=== PATIENT | male | born 1950 | race Caucasian/White ===

== ENCOUNTER 2018-08-10 08:25 | Outpatient (CLI) | payer BC, OTHER ==
[~2018-08-10 08:25] MED LIST: ASPI-496 PO; EXEN2PEN SC; INSU100I28 SC; LISI-167 PO; METF500T17 PO; PRAV80TA2 PO; SITA1TAB5 PO
[2018-08-10 09:36] LABS: MICROSCOPIC NOT IND
[2018-08-10 09:37] LABS: CULTURE INDICATED? NO
[2018-08-10 09:41] LABS: BASOPHILS # (AUTO) 0.03 x10^3/uL (0-0.1); BASOPHILS % (AUTO) 0 % (0-1); EOSINOPHILS # (AUTO) 0.36 x10^3/uL (0-0.4); EOSINOPHILS % (AUTO) 5 % (1-7); LYMPHOCYTES # (AUTO) 2.07 x10^3/uL (1-3.4); LYMPHOCYTES % (AUTO) 27 % (22-44); MD NO; MEAN CORPUSCULAR HEMOGLOBIN 31.2 pg (27.5-34.5); MEAN CORPUSCULAR HGB CONC 33.5 g/dL (33.2-36.2); MEAN CORPUSCULAR VOLUME 93.1 fL (81-97); MEAN PLATELET VOLUME 8.2 fL (7.4-10.4); MONOCYTES # (AUTO) 0.58 x10^3/uL (0.2-0.8); MONOCYTES % (AUTO) 8 % (2-9); NEUTROPHILS # (AUTO) 4.52 x10^3/uL (1.8-6.8); NEUTROPHILS % (AUTO) 60 % (42-75); PLATELET COUNT 244 x10^3/uL (130-400); RED BLOOD COUNT 4.73 x10^6/uL (4.38-5.82)
[2018-08-10] MEDS ORDERED: INSU3INS SQ (09:49)
[2018-08-10] MEDS ORDERED: LISI-170 PO (09:49)
[2018-08-10] MEDS ORDERED: METF500T17 PO (09:49)
[2018-08-10 11:02] LABS: ALANINE AMINOTRANSFERASE 24 U/L (12-78); ALBUMIN 4.1 g/dL (3.4-5.0); ANION GAP 6 mmol/L (5-15); CALCIUM 8.9 mg/dL (8.5-10.1); CHLORIDE 106 mmol/L (98-107)
[2018-08-10 11:04] LABS: ALKALINE PHOSPHATASE 69 U/L (45-117); BILIRUBIN,TOTAL 1.1 mg/dL (0.2-1.0); CREATININE 1.35 mg/dL (0.7-1.3); TOTAL PROTEIN 7.4 g/dL (6.4-8.2)
== END 2018-08-10 23:59 | disposition home or self-care (01) ==
LOC: STAR 08:25
PROVIDERS: ATTEND Orthopaedic Surgery
DX: Z01.818 Encounter for other preprocedural examination (principal); M16.12 Unilateral primary osteoarthritis, left hip
CPT/HCPCS: 36415; 80053; 81003; 85025; 87081; 93005

== ENCOUNTER 2018-08-16 05:39 | Inpatient (IN) | payer BC, MEDICARE, OTHER ==
[~2018-08-16] VITALS: Ht 182.1 cm; Wt 125.0 kg
[~2018-08-16 05:39] MED LIST changes: +INSU3INS SQ; +LISI-170 PO
[2018-08-16] MEDS ORDERED: TRANEXAMIC ACID 100 MG/ML, 10ML ONE (06:30)
[2018-08-16] MEDS ORDERED: KETOROLAC 60 MG/2 ML ONE (06:30)
[2018-08-16] MEDS ORDERED: ROPIvacaine/PF 0.2%, 20 ML ONE (06:31)
[2018-08-16] MEDS ORDERED: SODIUM CHLORIDE 0.9% 100 ML ONE (06:31)
[2018-08-16] MEDS ORDERED: VANCOMYCIN 1,000 MG ONE (06:31)
[2018-08-16] MEDS ORDERED: EPINEPHRINE 1 MG/ML, 1ML ONE (06:31)
[2018-08-16] MEDS ORDERED: LACTATED RINGERS 1,000 ML IV SCH (06:43)
[2018-08-16] MEDS ORDERED: ONDANSETRON ODT 8 MG PO STA (06:44)
[2018-08-16] MEDS ORDERED: ACETAMINOPHEN 500 MG TABLET PO STA (06:44)
[2018-08-16] MEDS ORDERED: GABAPENTIN 300 MG CAPSULE PO STA (06:44)
[2018-08-16] MEDS ORDERED: FAMOTIDINE 20 MG TABLET PO STA (06:44)
[2018-08-16] MEDS ORDERED: MIDAZOLAM 1 MG/ML, 2ML ONE (07:02)
[2018-08-16] MEDS ORDERED: FENTANYL PF 100 MCG/2ML ONE (07:02)
[2018-08-16] MEDS ORDERED: PROPOFOL 50 ML ONE (07:05)
[2018-08-16] MEDS ORDERED: MIDAZOLAM 1 MG/ML, 2ML IV PRN (08:00)
[2018-08-16] MEDS ORDERED: OXYcodone 5 MG/5 ML ORAL.SOL UDC PO PRN (08:00)
[2018-08-16] MEDS ORDERED: FENTANYL PF 100 MCG/2ML IV PRN (08:00)
[2018-08-16] MEDS ORDERED: HYDROmorphone 2 MG/ML, 1ML IVPush PRN (08:00)
[2018-08-16] MEDS ORDERED: ONDANSETRON 2MG/ML, 2ML IV PRN ×2 (08:00→09:30)
[2018-08-16] MEDS ORDERED: SCOPOLAMINE PATCH, 1.5MG PATCH.TD72 TD PRN (08:00)
[2018-08-16] MEDS ORDERED: PROMETHAZINE 25 MG/ML, 1ML IV PRN (08:00)
[2018-08-16] MEDS ORDERED: hydrALAzine 20 MG/ML, 1ML IV PRN (08:00)
[2018-08-16] MEDS ORDERED: METOPROLOL 1 MG/ML, 5ML IV PRN (08:00)
[2018-08-16] MEDS ORDERED: MEPERIDINE/PF 25MG/0.5ML IVPush PRN (08:00)
[2018-08-16] MEDS ORDERED: ALBUTEROL/IPRATROPIUM 2.5MG/0.5MG, 3 ML NPPB PRN (08:00)
[2018-08-16] MEDS ORDERED: PHENYLEPHRINE 10 MG/ML ONE (08:32)
[2018-08-16] MEDS ORDERED: DEXAMETHASONE 4 MG/ML, 1ML ONE (08:32)
[2018-08-16] MEDS ORDERED: CEFAZOLIN 1,000 MG ONE (08:32)
[2018-08-16] MEDS: SODIUM CHLORIDE 0.9% 1,000 ML IV SCH ×2 (09:05→19:05)
[2018-08-16] MEDS ORDERED: DIAZEPAM 5 MG TABLET ONE (09:26)
[2018-08-16] MEDS ORDERED: MAGNESIUM HYDROXIDE 8%, 30ML UDC PO PRN (09:30)
[2018-08-16] MEDS ORDERED: ONDANSETRON 4 MG TABLET PO PRN (09:30)
[2018-08-16] MEDS ORDERED: PROMETHAZINE 25 MG/ML, 1ML IM PRN (09:30)
[2018-08-16] MEDS ORDERED: OXYcodone IR 5MG TABLET PO PRN (09:30)
[2018-08-16] MEDS ORDERED: LORazepam 1MG TABLET PO PRN (09:30)
[2018-08-16] MEDS ORDERED: TRANEXAMIC ACID 1,500 MG in SODIUM CHLORIDE 0.9% 100 ML IVPB ONE (09:30)
[2018-08-16] MEDS ORDERED: PROMETHAZINE 12.5 MG SUPP PR PRN (09:30)
[2018-08-16] MEDS: DIAZEPAM 5 MG TABLET PO PRN ×2 (09:30→21:45)
[2018-08-16] MEDS ORDERED: SENNA/DOCUSATE TABLET PO PRN (09:30)
[2018-08-16] MEDS ORDERED: DIPHENHYDRAMINE 50 MG CAPSULE PO PRN (09:30)
[2018-08-16] MEDS ORDERED: ZOLPIDEM 5MG TABLET PO PRN (09:30)
[2018-08-16] MEDS ORDERED: ACETAMINOPHEN 650 MG/20.3 ML UDC PO PRN (09:30)
[2018-08-16] MEDS ORDERED: ALUMINUM/MAG/SIMETHICONE 30 ML UDC PO PRN (09:30)
[2018-08-16] MEDS ORDERED: BISACODYL 10 MG SUPP PR PRN (09:30)
[2018-08-16] MEDS ORDERED: HYDROmorphone 1 MG/ML, 1ML IV PRN (09:30)
[2018-08-16 10:45] VITALS: BP 137/78
[2018-08-16] MEDS: INSULIN REGULAR 100 UNITS/ML, 3ML VIAL SQ-INSULIN SCH ×3 (11:00→21:20)
[2018-08-16 15:35] VITALS: BP 133/71
[2018-08-16] MEDS: CEFAZOLIN PMX 2GM/50ML 50 ML IVPB SCH ×2 (16:08→23:59)
[2018-08-16 18:32] VITALS: BP 120/69
[2018-08-16] MEDS ORDERED: PRAVASTATIN 40 MG TABLET PO SCH (21:00)
[2018-08-16] MEDS: DOCUSATE 100 MG CAPSULE PO SCH (21:10)
[2018-08-17 01:22] VITALS: BP 126/74
[2018-08-17] MEDS: SODIUM CHLORIDE 0.9% 1,000 ML IV SCH (05:05)
[2018-08-17] MEDS ORDERED: DEXAMETHASONE 4 MG/ML, 1ML IVPush SCH (06:00)
[2018-08-17] MEDS ORDERED: ASPIRIN 81 MG TABLET EC PO SCH (06:00)
[2018-08-17] MEDS: INSULIN REGULAR 100 UNITS/ML, 3ML VIAL SQ-INSULIN SCH (08:00)
[2018-08-17] MEDS: DOCUSATE 100 MG CAPSULE PO SCH (08:01)
[2018-08-17 08:16] VITALS: BP 110/66
[2018-08-17] MEDS ORDERED: MULTIVITAMINS/MINERALS TABLET PO SCH (09:00)
[2018-08-17] MEDS ORDERED: metFORMIN 500 MG TABLET PO SCH (09:00)
[2018-08-17] MEDS ORDERED: LISINOPRIL 20 MG TABLET PO SCH (09:00)
[2018-08-17] MEDS ORDERED: KETOROLAC 30 MG/1 ML IV SCH (09:30)
[2018-08-17] MEDS ORDERED: DIAZ5TAB PO (10:35)
== END 2018-08-17 10:44 | disposition home or self-care (01) | DRG 470 ==
LOC: ORIP 05:39 → 4NOR 10:44 → DCLOUNGE 08-17 10:27
PROVIDERS: ADMIT Orthopaedic Surgery; ATTEND Orthopaedic Surgery
PROC: 0SRB06Z Replacement of Left Hip Joint with Oxidized Zirconium on Polyethylene Synthetic Substitute, Open Approach (ICD-10-PCS; principal; 2018-08-16 07:30)
DX: M16.12 Unilateral primary osteoarthritis, left hip (principal); E11.9 Type 2 diabetes mellitus without complications; E78.5 Hyperlipidemia, unspecified; N18.3 Chronic kidney disease, stage 3 (moderate); I12.9 Hypertensive chronic kidney disease with stage 1 through stage 4 chronic kidney disease, or unspecified chronic kidney disease; K21.9 Gastro-esophageal reflux disease without esophagitis; Z88.8 Allergy status to other drugs, medicaments and biological substances; Z87.891 Personal history of nicotine dependence
CPT/HCPCS: 36415; 72170; 82962; 85014; 85018; 86850; 86900; C1713; G0378; J0171; J0690; J1100; J1815; J1885; J2250; J2704; J2795; J3010; J3370; Q0162; C1776; J2370; J7120